=== PATIENT | female | born 1970 | race Two or more races ===

== ENCOUNTER 2018-05-01 11:48 | Inpatient (IN) | payer MEDICAID, OTHER ==
[~2018-05-01] VITALS: Ht 154.9 cm; Wt 94.8 kg
[2018-05-01] MEDS ORDERED: SODIUM CHLORIDE 0.9% 1,000 ML IV ONE ×2 (13:33)
[2018-05-01] MEDS ORDERED: ONDANSETRON HCL 4 MG/2 ML VIAL IV ONE (13:45)
[2018-05-01] MEDS ORDERED: KETOROLAC TROMETH 30 MG/ML 1ML VIAL IV ONE (13:45)
[2018-05-01] MEDS ORDERED: cefTRIAXone 1GM/10ml IVPUSH 10 ML IV ONE ×2 (13:45→16:00)
[2018-05-01 13:47] LABS: Basophils # (auto) 0 uL; Basophils % (auto) 0.2 % (0.0-2.0); Eosinophils # (auto) 0 uL; Eosinophils % (auto) 0.3 % (0.0-7.0); Hematocrit 37.2 % (36.0-46.0); Hemoglobin 12.4 g/dL (12.2-16.2); Lymphocytes # (auto) 0.8 uL; Lymphocytes % (auto) 6.5 % (10.0-50.0); Mean Corpuscular Hemoglobin 28.2 pg (28.0-32.0); Mean Corpuscular Hgb Conc. 33.4 g/dL (32.0-36.0); Mean Corpuscular Volume 84.3 fL (80.0-100.0); Monocytes # (auto) 0.8 uL; Monocytes % (auto) 6.5 % (0.0-12.0); Neutrophils # (auto) 10.5 uL; Neutrophils % (auto) 86.5 % (37.0-80.0); Nucleated Red Blood Cells % 0.1 %; Platelet Count (auto) 339 10^3/uL (140-450); Red Blood Cells 4.41 10^6/uL (4.0-5.20); Red Cell Distribution Width 12.7 % (11.8-14.3); White Blood Cell 12.1 10^3/uL (4.4-10.8)
[2018-05-01 13:49] LABS: Urine Bacteria NONE SEEN /hpf (None Seen); Urine Blood 3+ /uL (Negative); Urine Mucus MODERATE (None Seen); Urine Specific Gravity 1.029 (1.001-1.035); Urine WBC 27 /hpf (0 - 5)
[2018-05-01 14:09] LABS: Alanine Aminotransferase 21 U/L (13-56); Albumin 3.2 g/dL (3.4-5.0); Alkaline Phosphatase 62 U/L (45-117); Anion Gap 9 (5-15); Aspartate Aminotransferase 15 U/L (15-37); Bilirubin, Total 1.1 mg/dL (0.2-1.0); Blood Urea Nitrogen 15 mg/dL (7-18); Calcium 8.3 mg/dL (8.5-10.1); Carbon Dioxide 22 mmol/L (21-32); Chloride 106 mmol/L (98-107); GFR African American 77 mL/min; GFR Non-African American 63 mL/min; Glucose 92 mg/dL (74-106); Potassium 3.7 mmol/L (3.5-5.1); Sodium 137 mmol/L (136-145); Total Protein 7.3 g/dL (6.4-8.2)
[2018-05-01] MEDS ORDERED: AZITHROMYCIN 500MG/ 250ML 250 ML IV ONE (16:00)
[2018-05-01] MEDS ORDERED: LEVOFLOXACIN 750MG 150 ML IV ONE ×2 (16:15→20:00)
[2018-05-01] MEDS ORDERED: CLINDAMYCIN 900MG IV 50 ML IV ONE ×2 (16:15→20:00)
[2018-05-01 17:21] LABS: Lactic Acid w/Reflex 2.4 mmol/L (0.4-2.0)
[2018-05-01] MEDS ORDERED: LORazepam 0.5 MG TAB PO PRN (18:15)
[2018-05-01] MEDS ORDERED: NITROGLYCERIN 0.4 MG SL TAB SL PRN (18:15)
[2018-05-01] MEDS ORDERED: MORPHINE SULF INJ 2 MG/ML SYRINGE 1ML IV PRN (18:15)
[2018-05-01] MEDS: FAMOTIDINE (10MG/ML) 2ML VL IV SCH (18:36)
[2018-05-01] MEDS: MORPHINE SULF INJ 2 MG/ML SYRINGE 1ML IV PRN (19:55)
[2018-05-01 20:00] LABS: Prothrombin Time 10.7 sec (9.27-12.13)
[2018-05-01] MEDS: PROMETHAZINE HCL 25 MG/ML 1ML IV PRN (20:15)
[2018-05-01] MEDS: SODIUM CHLORIDE 0.9% 1,000 ML IV SCH (21:17)
[2018-05-02] MEDS: PROMETHAZINE HCL 25 MG/ML 1ML IV PRN (02:12)
[2018-05-02] MEDS: MORPHINE SULF INJ 2 MG/ML SYRINGE 1ML IV PRN ×3 (02:13→15:32)
[2018-05-02] MEDS: SODIUM CHLORIDE 0.9% 1,000 ML IV SCH ×2 (04:13→17:55)
[2018-05-02] MEDS: CLINDAMYCIN 600MG IV 50 ML IV SCH ×3 (06:20→22:02)
[2018-05-02] MEDS: FAMOTIDINE (10MG/ML) 2ML VL IV SCH ×2 (06:21→17:46)
[2018-05-02 07:06] LABS: Basophils # (auto) 0 uL; Basophils % (auto) 0.3 % (0.0-2.0); Eosinophils # (auto) 0.1 uL; Eosinophils % (auto) 0.7 % (0.0-7.0); Hemoglobin 10.8 g/dL (12.2-16.2); Lymphocytes # (auto) 1.3 uL; Lymphocytes % (auto) 14.1 % (10.0-50.0); Mean Corpuscular Hemoglobin 29.4 pg (28.0-32.0); Mean Corpuscular Hgb Conc. 34.7 g/dL (32.0-36.0); Mean Corpuscular Volume 84.6 fL (80.0-100.0); Monocytes # (auto) 0.7 uL; Monocytes % (auto) 7.5 % (0.0-12.0); Neutrophils # (auto) 7.4 uL; Neutrophils % (auto) 77.4 % (37.0-80.0); Platelet Count (auto) 328 10^3/uL (140-450); Red Blood Cells 3.67 10^6/uL (4.0-5.20); Red Cell Distribution Width 12.6 % (11.8-14.3); White Blood Cell 9.6 10^3/uL (4.4-10.8)
[2018-05-02 07:27] LABS: Albumin 2.4 g/dL (3.4-5.0); BUN/Creatinine Ratio 15.7; Bilirubin, Total 0.7 mg/dL (0.2-1.0); Calcium 7.3 mg/dL (8.5-10.1); Potassium 3.2 mmol/L (3.5-5.1)
[2018-05-02 09:00] VITALS: BP 104/61
[2018-05-02] MEDS: cefTRIAXone 1GM/10ml IVPUSH 10 ML IV SCH (09:46)
[2018-05-02] MEDS: LEVOFLOXACIN 500MG 100 ML IV SCH (09:47)
[2018-05-02] MEDS ORDERED: PANTOPRAZOLE 40 MG TAB PO SCH (10:00)
[2018-05-02 13:00] VITALS: BP 96/58
[2018-05-02] MEDS ORDERED: POTASSIUM CHLORIDE 8 MEQ TAB PO ONE (13:30)
[2018-05-02 17:00] VITALS: BP 107/58
[2018-05-02] MEDS: Ensure Enlive Strawberry 8oz Bottle PO SCH (18:30)
[2018-05-02 20:00] VITALS: BP 110/65
[2018-05-02] MEDS: ACETAMINOPHEN 500 MG TAB PO PRN (20:47)
[2018-05-02 22:00] VITALS: BP 110/65
[2018-05-03] MEDS: SODIUM CHLORIDE 0.9% 1,000 ML IV SCH ×3 (00:30→20:34)
[2018-05-03 05:00] VITALS: BP 110/62
[2018-05-03] MEDS: CLINDAMYCIN 600MG IV 50 ML IV SCH ×3 (06:20→21:33)
[2018-05-03] MEDS: FAMOTIDINE (10MG/ML) 2ML VL IV SCH ×2 (06:20→18:15)
[2018-05-03] MEDS: ACETAMINOPHEN 500 MG TAB PO PRN ×3 (06:21→21:34)
[2018-05-03 06:53] LABS: Basophils # (auto) 0 uL; Basophils % (auto) 0.4 % (0.0-2.0); Eosinophils # (auto) 0.1 uL; Eosinophils % (auto) 1.6 % (0.0-7.0); Hematocrit 30.2 % (36.0-46.0); Hemoglobin 10.6 g/dL (12.2-16.2); Lymphocytes # (auto) 1.6 uL; Lymphocytes % (auto) 22.3 % (10.0-50.0); Mean Corpuscular Hemoglobin 29.4 pg (28.0-32.0); Mean Corpuscular Hgb Conc. 34.9 g/dL (32.0-36.0); Mean Corpuscular Volume 84.1 fL (80.0-100.0); Monocytes # (auto) 0.5 uL; Monocytes % (auto) 7.5 % (0.0-12.0); Neutrophils % (auto) 68.2 % (37.0-80.0); Platelet Count (auto) 365 10^3/uL (140-450); Red Blood Cells 3.59 10^6/uL (4.0-5.20); White Blood Cell 7.2 10^3/uL (4.4-10.8)
[2018-05-03 07:06] LABS: BUN/Creatinine Ratio 11.1; Calcium 7.4 mg/dL (8.5-10.1); Potassium 3.2 mmol/L (3.5-5.1)
[2018-05-03] MEDS: Ensure Enlive Strawberry 8oz Bottle PO SCH ×3 (08:00→18:00)
[2018-05-03 09:00] VITALS: BP 100/66
[2018-05-03] MEDS: cefTRIAXone 1GM/10ml IVPUSH 10 ML IV SCH (09:45)
[2018-05-03] MEDS: LEVOFLOXACIN 500MG 100 ML IV SCH (09:45)
[2018-05-03] MEDS ORDERED: POTASSIUM CHL 20 Meq TABLET PO ONE (11:45)
[2018-05-03 13:00] VITALS: BP 103/69
[2018-05-03 16:49] VITALS: BP 106/73
[2018-05-03 20:00] VITALS: BP 115/75
[2018-05-03 22:00] VITALS: BP 115/75
[2018-05-04] MEDS: MORPHINE SULF INJ 2 MG/ML SYRINGE 1ML IV PRN ×2 (00:06→06:12)
[2018-05-04 05:00] VITALS: BP 108/72
[2018-05-04] MEDS: CLINDAMYCIN 600MG IV 50 ML IV SCH (05:58)
[2018-05-04] MEDS: SODIUM CHLORIDE 0.9% 1,000 ML IV SCH ×2 (06:12→14:13)
[2018-05-04] MEDS: FAMOTIDINE (10MG/ML) 2ML VL IV SCH ×2 (06:12→17:50)
[2018-05-04 06:26] LABS: Basophils # (auto) 0 uL; Basophils % (auto) 0.5 % (0.0-2.0); Eosinophils # (auto) 0.2 uL; Eosinophils % (auto) 2.9 % (0.0-7.0); Hematocrit 30.6 % (36.0-46.0); Hemoglobin 10.6 g/dL (12.2-16.2); Lymphocytes % (auto) 30.2 % (10.0-50.0); Mean Corpuscular Hemoglobin 29.1 pg (28.0-32.0); Mean Corpuscular Hgb Conc. 34.7 g/dL (32.0-36.0); Monocytes # (auto) 0.4 uL; Monocytes % (auto) 5.9 % (0.0-12.0); Neutrophils % (auto) 60.5 % (37.0-80.0); Nucleated Red Blood Cells % 0.2 %; Platelet Count (auto) 442 10^3/uL (140-450); Red Blood Cells 3.64 10^6/uL (4.0-5.20); Red Cell Distribution Width 12.9 % (11.8-14.3); White Blood Cell 6.6 10^3/uL (4.4-10.8)
[2018-05-04 06:43] LABS: BUN/Creatinine Ratio 11.9; Calcium 7.7 mg/dL (8.5-10.1); Potassium 3.5 mmol/L (3.5-5.1)
[2018-05-04] MEDS: Ensure Enlive Strawberry 8oz Bottle PO SCH ×3 (08:03→17:50)
[2018-05-04 09:00] VITALS: BP 111/65
[2018-05-04] MEDS: LEVOFLOXACIN 500MG 100 ML IV SCH (10:45)
[2018-05-04] MEDS: cefTRIAXone 1GM/10ml IVPUSH 10 ML IV SCH (10:46)
[2018-05-04] MEDS: ACETAMINOPHEN 500 MG TAB PO PRN ×2 (11:09→20:47)
[2018-05-04] MEDS ORDERED: POTASSIUM CHL 10 Meq TABLET PO ONE (11:30)
[2018-05-04 11:44] LABS: INR 0.94 (0.9-1.15); Prothrombin Time 10.1 sec (9.27-12.13)
[2018-05-04 13:00] VITALS: BP 124/70
[2018-05-04] MEDS: PROMETHAZINE HCL 25 MG/ML 1ML IV PRN (13:07)
[2018-05-04] MEDS: metroNIDAZOLE 500MG/100ML 100 ML IV SCH ×2 (14:12→22:21)
[2018-05-04 16:46] VITALS: BP 105/62
[2018-05-04 22:00] VITALS: BP 120/72
[2018-05-05] MEDS: MORPHINE SULF INJ 2 MG/ML SYRINGE 1ML IV PRN ×2 (02:17→06:46)
[2018-05-05] MEDS: SODIUM CHLORIDE 0.9% 1,000 ML IV SCH ×2 (02:18→09:37)
[2018-05-05 05:08] VITALS: BP 123/82
[2018-05-05] MEDS: FAMOTIDINE (10MG/ML) 2ML VL IV SCH ×2 (06:29→17:48)
[2018-05-05] MEDS: metroNIDAZOLE 500MG/100ML 100 ML IV SCH ×3 (06:29→21:19)
[2018-05-05 06:53] LABS: Basophils # (auto) 0 uL; Eosinophils # (auto) 0.2 uL; Hemoglobin 10.7 g/dL (12.2-16.2); Lymphocytes # (auto) 2.4 uL; Monocytes # (auto) 0.5 uL; Neutrophils % (auto) 55.3 % (37.0-80.0); Nucleated Red Blood Cells % 0.1 %
[2018-05-05 06:56] LABS: Basophils % (auto) 0.6 % (0.0-2.0); Eosinophils % (auto) 2.2 % (0.0-7.0); Hematocrit 30.6 % (36.0-46.0); Lymphocytes % (auto) 34.3 % (10.0-50.0); Mean Corpuscular Hemoglobin 29.3 pg (28.0-32.0); Mean Corpuscular Hgb Conc. 34.9 g/dL (32.0-36.0); Mean Corpuscular Volume 84.1 fL (80.0-100.0); Monocytes % (auto) 7.6 % (0.0-12.0); Neutrophils # (auto) 3.8 uL; Platelet Count (auto) 511 10^3/uL (140-450); Red Blood Cells 3.65 10^6/uL (4.0-5.20); Red Cell Distribution Width 12.7 % (11.8-14.3); White Blood Cell 6.9 10^3/uL (4.4-10.8)
[2018-05-05 07:14] LABS: BUN/Creatinine Ratio 9.8; Calcium 7.8 mg/dL (8.5-10.1); Potassium 3.6 mmol/L (3.5-5.1)
[2018-05-05] MEDS: Ensure Enlive Strawberry 8oz Bottle PO SCH ×3 (07:22→17:48)
[2018-05-05 09:00] VITALS: BP 124/74
[2018-05-05] MEDS: LEVOFLOXACIN 500MG 100 ML IV SCH (09:36)
[2018-05-05] MEDS: PROMETHAZINE HCL 25 MG/ML 1ML IV PRN (09:51)
[2018-05-05] MEDS ORDERED: ONDANSETRON HCL 4 MG/2 ML VIAL ONE (11:42)
[2018-05-05] MEDS ORDERED: fentaNYL CITRATE 100 MCG/2 ML VL ONE (11:42)
[2018-05-05] MEDS ORDERED: ROCURONIUM 10MG/ML 10ML VIAL IV ONE (11:42)
[2018-05-05] MEDS ORDERED: HYDROmorphone HCL 2 MG/ML VL ONE (11:42)
[2018-05-05] MEDS ORDERED: PROPOFOL 10 MG/ML 20 ML IV ONE (11:42)
[2018-05-05] MEDS ORDERED: MIDAZOLAM HCL 1MG/1ML-2 ML VIAL ONE (11:42)
[2018-05-05] MEDS ORDERED: METHYLENE BLUE 0.5% 5MG/ML 10ml AMP IV ONE (11:55)
[2018-05-05] MEDS ORDERED: HEPARIN 1,000 UNITS/ml 1ML VIAL ONE (11:56)
[2018-05-05] MEDS ORDERED: METOCLOPRAMIDE HCL 5MG/ml INJ 2ml VIAL IV ONE (12:15)
[2018-05-05] MEDS ORDERED: KETOROLAC TROMETH 30 MG/ML 1ML VIAL IV ONE (12:15)
[2018-05-05] MEDS ORDERED: ceFAZolin 1GM/50ML 50 ML IV ONE (12:17)
[2018-05-05] MEDS ORDERED: SUCCINYLCHOLINE CHLORIDE 20 MG/ML 10ML VIAL IV ONE (12:25)
[2018-05-05 13:00] VITALS: BP 137/78
[2018-05-05] MEDS ORDERED: GLYCOPYRROLATE 0.2 MG/ML 1ML VIAL ONE (13:32)
[2018-05-05] MEDS ORDERED: KETOROLAC TROMETH 60MG/2ML VIAL IM ONE (13:32)
[2018-05-05] MEDS ORDERED: NEOSTIGMINE 1 MG/ML INJ (10mg/10ML VIAL) ONE (13:32)
[2018-05-05] MEDS ORDERED: MORPHINE SULFATE 4 MG/ML SYR/VIAL IV PRN ×2 (14:30)
[2018-05-05] MEDS: LACTATED RINGER'S 1,000 ML IV SCH ×2 (14:47→21:19)
[2018-05-05] MEDS ORDERED: ACETAMINOPHEN IV 100 ML IV ONE ×2 (14:50→15:00)
[2018-05-05] MEDS ORDERED: ACETAMINOPHEN IV 1000 MG/100ML (10MG/ML) IV ONE (14:55)
[2018-05-05] MEDS: HYDROmorphone HCL 2 MG/ML VL IV PRN ×4 (14:58→16:58)
[2018-05-05] MEDS ORDERED: ONDANSETRON HCL 4 MG/2 ML VIAL IV PRN (15:00)
[2018-05-05] MEDS ORDERED: MEPERIDINE HCL (50 MG/ML) 1 ML VIAL ONE (15:05)
[2018-05-05] MEDS ORDERED: MEPERIDINE HCL (25 MG/ML) 1ML VIAL IV ONE (15:06)
[2018-05-05 16:36] VITALS: BP 129/81
[2018-05-05] MEDS: MORPHINE SULFATE 4 MG/ML SYR/VIAL IV PRN ×2 (17:48→22:27)
[2018-05-05 19:46] LABS: Basophils # (auto) 0 uL; Basophils % (auto) 0.2 % (0.0-2.0); Eosinophils # (auto) 0 uL; Monocytes # (auto) 0.6 uL
[2018-05-05 19:49] LABS: Eosinophils % (auto) 0.2 % (0.0-7.0); Hematocrit 31.2 % (36.0-46.0); Lymphocytes # (auto) 1.2 uL; Lymphocytes % (auto) 11.7 % (10.0-50.0); Mean Corpuscular Hgb Conc. 35.4 g/dL (32.0-36.0); Mean Corpuscular Volume 84.7 fL (80.0-100.0); Monocytes % (auto) 6.1 % (0.0-12.0); Neutrophils # (auto) 8.1 uL; Neutrophils % (auto) 81.8 % (37.0-80.0); Nucleated Red Blood Cells % 0.1 %; Platelet Count (auto) 510 10^3/uL (140-450); Red Blood Cells 3.68 10^6/uL (4.0-5.20); White Blood Cell 9.9 10^3/uL (4.4-10.8)
[2018-05-05 21:32] VITALS: BP 131/73
[2018-05-05] MEDS: KETOROLAC TROMETH 30 MG/ML 1ML VIAL IV PRN (23:35)
[2018-05-05] MEDS: TEMAZEPAM 15 MG CAP PO PRN (23:35)
[2018-05-06] MEDS: MORPHINE SULFATE 4 MG/ML SYR/VIAL IV PRN ×4 (02:48→21:27)
[2018-05-06] MEDS: LACTATED RINGER'S 1,000 ML IV SCH ×3 (04:26→17:08)
[2018-05-06 05:10] VITALS: BP 119/74
[2018-05-06] MEDS: FAMOTIDINE (10MG/ML) 2ML VL IV SCH ×2 (06:01→17:10)
[2018-05-06] MEDS: metroNIDAZOLE 500MG/100ML 100 ML IV SCH ×3 (06:01→21:28)
[2018-05-06] MEDS: KETOROLAC TROMETH 30 MG/ML 1ML VIAL IV PRN ×2 (06:01→13:52)
[2018-05-06 08:00] VITALS: BP 132/87
[2018-05-06] MEDS: Ensure Enlive Strawberry 8oz Bottle PO SCH ×3 (08:17→17:09)
[2018-05-06 08:20] LABS: Basophils # (auto) 0 uL; Basophils % (auto) 0.3 % (0.0-2.0); Eosinophils # (auto) 0.1 uL; Lymphocytes # (auto) 1.6 uL; Mean Corpuscular Volume 83.7 fL (80.0-100.0); Neutrophils # (auto) 6.5 uL; Platelet Count (auto) 453 10^3/uL (140-450); Red Cell Distribution Width 12.6 % (11.8-14.3)
[2018-05-06 08:22] LABS: Eosinophils % (auto) 0.9 % (0.0-7.0); Hematocrit 27.7 % (36.0-46.0); Lymphocytes % (auto) 18.4 % (10.0-50.0); Mean Corpuscular Hemoglobin 30.2 pg (28.0-32.0); Mean Corpuscular Hgb Conc. 36.1 g/dL (32.0-36.0); Monocytes # (auto) 0.7 uL; Monocytes % (auto) 7.5 % (0.0-12.0); Neutrophils % (auto) 72.9 % (37.0-80.0); Red Blood Cells 3.31 10^6/uL (4.0-5.20); White Blood Cell 8.9 10^3/uL (4.4-10.8)
[2018-05-06 08:44] LABS: Albumin 2.3 g/dL (3.4-5.0); BUN/Creatinine Ratio 11.4; Bilirubin, Total 0.3 mg/dL (0.2-1.0); Calcium 7.3 mg/dL (8.5-10.1); Potassium 3.2 mmol/L (3.5-5.1); Total Protein 5.7 g/dL (6.4-8.2)
[2018-05-06] MEDS ORDERED: POTASSIUM CHL 20 Meq TABLET PO ONE (09:45)
[2018-05-06] MEDS: LEVOFLOXACIN 500MG 100 ML IV SCH (10:16)
[2018-05-06] MEDS: ACETAMINOPHEN 500 MG TAB PO PRN (11:40)
[2018-05-06 12:00] VITALS: BP 125/72
[2018-05-06 16:30] VITALS: BP 132/84
[2018-05-06 21:23] VITALS: BP 127/81
[2018-05-06] MEDS: TEMAZEPAM 15 MG CAP PO PRN (21:28)
[2018-05-07] MEDS: LACTATED RINGER'S 1,000 ML IV SCH ×4 (00:26→23:19)
[2018-05-07] MEDS: KETOROLAC TROMETH 30 MG/ML 1ML VIAL IV PRN ×3 (00:38→13:29)
[2018-05-07 05:17] VITALS: BP 121/73
[2018-05-07] MEDS: metroNIDAZOLE 500MG/100ML 100 ML IV SCH ×3 (06:05→21:56)
[2018-05-07] MEDS: FAMOTIDINE (10MG/ML) 2ML VL IV SCH ×2 (06:05→18:05)
[2018-05-07 09:00] VITALS: BP 145/77
[2018-05-07] MEDS ORDERED: DOCUSATE SOD 100 MG CAP PO PRN (09:30)
[2018-05-07] MEDS ORDERED: BISACODYL 10 MG RECT SUPP PR PRN (09:30)
[2018-05-07] MEDS: Ensure Enlive Strawberry 8oz Bottle PO SCH ×3 (09:45→18:04)
[2018-05-07] MEDS: LEVOFLOXACIN 500MG 100 ML IV SCH (09:45)
[2018-05-07] MEDS: DOCUSATE CALCIUM 240 MG CAP PO SCH (09:45)
[2018-05-07] MEDS: SIMETHICONE 80 MG CHEWABLE TABLET PO SCH ×3 (12:05→21:57)
[2018-05-07 13:00] VITALS: BP 126/73
[2018-05-07 16:53] VITALS: BP 124/72
[2018-05-07] MEDS: HYDROcodone-ACET 10/325MG TAB PO PRN (18:50)
[2018-05-07] MEDS: TEMAZEPAM 15 MG CAP PO PRN (21:57)
[2018-05-07 22:22] VITALS: BP 138/76
[2018-05-08 04:34] LABS: Hematocrit 27.9 % (36.0-46.0)
[2018-05-08 04:38] LABS: Hemoglobin 10.1 g/dL (12.2-16.2)
[2018-05-08 04:54] LABS: Potassium 3.3 mmol/L (3.5-5.1)
[2018-05-08 04:59] LABS: BUN/Creatinine Ratio 20.3; Calcium 7.5 mg/dL (8.5-10.1)
[2018-05-08 05:17] VITALS: BP_SYST 131; BP_SYST 144; BP_DIAS 75; BP_DIAS 81
[2018-05-08] MEDS: metroNIDAZOLE 500MG/100ML 100 ML IV SCH (06:22)
[2018-05-08] MEDS: FAMOTIDINE (10MG/ML) 2ML VL IV SCH ×2 (06:23→17:22)
[2018-05-08] MEDS: SIMETHICONE 80 MG CHEWABLE TABLET PO SCH ×4 (06:23→21:20)
[2018-05-08] MEDS: KETOROLAC TROMETH 30 MG/ML 1ML VIAL IV PRN (06:23)
[2018-05-08 08:00] VITALS: BP 136/86
[2018-05-08] MEDS: Ensure Enlive Strawberry 8oz Bottle PO SCH ×3 (09:38→17:22)
[2018-05-08] MEDS: LACTATED RINGER'S 1,000 ML IV SCH ×3 (09:38→22:48)
[2018-05-08] MEDS: LEVOFLOXACIN 500MG 100 ML IV SCH (09:39)
[2018-05-08] MEDS: DOCUSATE CALCIUM 240 MG CAP PO SCH (09:39)
[2018-05-08] MEDS ORDERED: POTASSIUM CHL 20 Meq TABLET PO ONE (10:15)
[2018-05-08 12:20] VITALS: BP 135/80
[2018-05-08] MEDS: metroNIDAZOLE 500 MG TAB PO SCH ×2 (13:36→21:19)
[2018-05-08] MEDS: HYDROcodone-ACET 10/325MG TAB PO PRN (14:09)
[2018-05-08 16:45] VITALS: BP 134/82
[2018-05-08] MEDS: TEMAZEPAM 15 MG CAP PO PRN (21:20)
[2018-05-08 22:00] VITALS: BP 124/71
[2018-05-09] MEDS: HYDROcodone-ACET 10/325MG TAB PO PRN ×2 (00:59→12:34)
[2018-05-09 05:00] VITALS: BP 118/69
[2018-05-09 05:57] LABS: Basophils # (auto) 0 uL; Mean Corpuscular Hgb Conc. 35.8 g/dL (32.0-36.0); Nucleated Red Blood Cells % 0.1 %
[2018-05-09 06:01] LABS: BUN/Creatinine Ratio 12.8; Calcium 7.6 mg/dL (8.5-10.1); Magnesium 2.2 mg/dL (1.6-2.6); Potassium 3.8 mmol/L (3.5-5.1)
[2018-05-09 06:06] LABS: Basophils % (auto) 0.4 % (0.0-2.0); Eosinophils # (auto) 0.2 uL; Eosinophils % (auto) 2.9 % (0.0-7.0); Lymphocytes % (auto) 28.3 % (10.0-50.0); Mean Corpuscular Hemoglobin 29.5 pg (28.0-32.0); Mean Corpuscular Volume 82.4 fL (80.0-100.0); Monocytes # (auto) 0.5 uL; Neutrophils # (auto) 4.4 uL; Neutrophils % (auto) 61.4 % (37.0-80.0); Platelet Count (auto) 510 10^3/uL (140-450); Red Cell Distribution Width 12.7 % (11.8-14.3); White Blood Cell 7.2 10^3/uL (4.4-10.8)
[2018-05-09] MEDS: FAMOTIDINE (10MG/ML) 2ML VL IV SCH (06:12)
[2018-05-09] MEDS: metroNIDAZOLE 500 MG TAB PO SCH ×2 (06:12→14:00)
[2018-05-09] MEDS: SIMETHICONE 80 MG CHEWABLE TABLET PO SCH ×2 (06:13→12:33)
[2018-05-09] MEDS: Ensure Enlive Strawberry 8oz Bottle PO SCH ×2 (08:29→12:35)
[2018-05-09 09:00] VITALS: BP 153/81
[2018-05-09] MEDS ORDERED: PROM25TA5 PO (09:45)
[2018-05-09] MEDS ORDERED: MET500T PO (09:45)
[2018-05-09] MEDS ORDERED: LEVO500T21 PO (09:45)
[2018-05-09] MEDS ORDERED: LEVOFLOXACIN 500 MG TAB PO SCH (10:00)
[2018-05-09] MEDS: DOCUSATE CALCIUM 240 MG CAP PO SCH (10:03)
[2018-05-09] MEDS ORDERED: PROMETHAZINE HCL 6.25 MG/5 ML ORAL SYRUP PO ONE (10:15)
[2018-05-09 13:00] VITALS: BP 147/80
[2018-05-09 13:21] VITALS: BP 153/81
== END 2018-05-09 14:45 | disposition home or self-care (01) | DRG 513 ==
LOC: ER 11:48 → EDBD 11:48 → TELE 11:49 → TELE-WESTW 05-02 09:05 → WEST WING 05-02 16:57
PROVIDERS: ADMIT Internal Medicine; ATTEND Internal Medicine
PROC: 0UT60ZZ Resection of Left Fallopian Tube, Open Approach (ICD-10-PCS; 2018-05-05)
PROC: 0DNW0ZZ Release Peritoneum, Open Approach (ICD-10-PCS; 2018-05-05)
PROC: 0UT90ZL Resection of Uterus, Supracervical, Open Approach (ICD-10-PCS; principal; 2018-05-05 12:25)
PROC: 0UT10ZZ Resection of Left Ovary, Open Approach (ICD-10-PCS; 2018-05-05 12:25)
DX: N83.202 Unspecified ovarian cyst, left side (principal); K65.1 Peritoneal abscess; A41.9 Sepsis, unspecified organism; J18.9 Pneumonia, unspecified organism; E44.0 Moderate protein-calorie malnutrition; R16.0 Hepatomegaly, not elsewhere classified; N12 Tubulo-interstitial nephritis, not specified as acute or chronic; E66.9 Obesity, unspecified; Z68.39 Body mass index [BMI] 39.0-39.9, adult; N39.0 Urinary tract infection, site not specified; J98.11 Atelectasis; K80.20 Calculus of gallbladder without cholecystitis without obstruction; N85.2 Hypertrophy of uterus; E87.6 Hypokalemia; N20.0 Calculus of kidney; N73.6 Female pelvic peritoneal adhesions (postinfective); Z82.3 Family history of stroke; Z82.49 Family history of ischemic heart disease and other diseases of the circulatory system; Z87.828 Personal history of other (healed) physical injury and trauma; Z83.3 Family history of diabetes mellitus; Z98.82 Breast implant status; Z98.891 History of uterine scar from previous surgery
CPT/HCPCS: 36415; 71045; 74176; 76830; 76856; 80048; 80053; 81001; 81025; 83605; 83735; 84484; 85014; 85018; 85025; 85610; 85652; 86141; 86850; 86900; 86901; 86920; 87040; 87086; 96365; 96366; 96375; 97110; 97116; 97163; 97530; J0131; J0330; J0690; J0696; J1885; J1956; J2250; J2405; J2704; J3490

== ENCOUNTER 2018-10-25 22:11 | Emergency (ER) | payer MEDICAID ==
[~2018-10-25] VITALS: Ht 157.5 cm; Wt 81.6 kg
[~2018-10-25 22:11] MED LIST: LEVO500T21 PO; MET500T PO; PROM25TA5 PO
[2018-10-25 22:49] VITALS: BP 113/73
[2018-10-25 23:03] LABS: Basophils # (auto) 0.1 uL; Eosinophils # (auto) 0.2 uL; Eosinophils % (auto) 2.3 % (0.0-7.0); Hematocrit 38.9 % (36.0-46.0); Hemoglobin 13.4 g/dL (12.2-16.2); Lymphocytes # (auto) 3.2 uL; Lymphocytes % (auto) 43.2 % (10.0-50.0); Mean Corpuscular Hemoglobin 28.8 pg (28.0-32.0); Mean Corpuscular Hgb Conc. 34.5 g/dL (32.0-36.0); Mean Corpuscular Volume 83.6 fL (80.0-100.0); Monocytes # (auto) 0.6 uL; Monocytes % (auto) 7.8 % (0.0-12.0); Neutrophils # (auto) 3.4 uL; Neutrophils % (auto) 45.7 % (37.0-80.0); Platelet Count (auto) 342 10^3/uL (140-450); Red Blood Cells 4.65 10^6/uL (4.0-5.20); Red Cell Distribution Width 13.8 % (11.8-14.3); White Blood Cell 7.3 10^3/uL (4.4-10.8)
[2018-10-25 23:05] LABS: Urine Bacteria NONE SEEN /hpf (None Seen); Urine Blood Negative /uL (Negative); Urine Mucus FEW (None Seen); Urine Specific Gravity 1.028 (1.001-1.035); Urine WBC 1 /hpf (0 - 5)
[2018-10-25 23:17] LABS: INR 0.95 (0.9-1.15); Partial Thromboplastin Time 25.6 sec (23.78-33.04); Prothrombin Time 10.2 sec (9.27-12.13)
[2018-10-25 23:19] LABS: Alanine Aminotransferase 51 U/L (13-56); Albumin 3.8 g/dL (3.4-5.0); Amylase 36 U/L (25-115); Anion Gap 6 (5-15); Aspartate Aminotransferase 23 U/L (15-37); BUN/Creatinine Ratio 19.6; Blood Urea Nitrogen 19 mg/dL (7-18); Calcium 8.2 mg/dL (8.5-10.1); Carbon Dioxide 25 mmol/L (21-32); Chloride 111 mmol/L (98-107); GFR African American > 60 mL/min; GFR Non-African American > 60 mL/min; Glucose 92 mg/dL (74-106); Lipase 130 U/L (73-393); Magnesium 2.2 mg/dL (1.6-2.6); Potassium 3.6 mmol/L (3.5-5.1); Sodium 142 mmol/L (136-145)
[2018-10-25 23:22] LABS: Alkaline Phosphatase 74 U/L (45-117); Bilirubin, Total 0.3 mg/dL (0.2-1.0); Total Protein 7.3 g/dL (6.4-8.2)
== END 2018-10-26 05:13 | disposition home or self-care (01) ==
LOC: ER 22:15
DX: K80.80 Other cholelithiasis without obstruction (principal); K52.9 Noninfective gastroenteritis and colitis, unspecified; R20.0 Anesthesia of skin; R20.2 Paresthesia of skin; I10 Essential (primary) hypertension; Z79.899 Other long term (current) drug therapy
CPT/HCPCS: 36415; 74176; 80053; 81001; 81025; 82150; 83690; 83735; 85025; 85610; 85730

== ENCOUNTER 2019-09-02 17:05 | Emergency (ER) | payer MEDICAID ==
[~2019-09-02] VITALS: Ht 154.9 cm; Wt 86.2 kg
[2019-09-02 18:19] LABS: Basophils # (auto) 0 uL; Basophils % (auto) 0.2 % (0.0-2.0); Eosinophils # (auto) 0 uL; Eosinophils % (auto) 0.2 % (0.0-7.0); Hematocrit 40.7 % (36.0-46.0); Hemoglobin 14.2 g/dL (12.2-16.2); Lymphocytes # (auto) 1.4 uL; Lymphocytes % (auto) 11.7 % (10.0-50.0); Mean Corpuscular Hgb Conc. 34.8 g/dL (32.0-36.0); Mean Corpuscular Volume 86.3 fL (80.0-100.0); Monocytes # (auto) 0.7 uL; Monocytes % (auto) 5.8 % (0.0-12.0); Neutrophils # (auto) 9.8 uL; Neutrophils % (auto) 82.1 % (37.0-80.0); Platelet Count (auto) 284 10^3/uL (140-450); Red Blood Cells 4.72 10^6/uL (4.0-5.20); Red Cell Distribution Width 12.8 % (11.8-14.3); White Blood Cell 11.9 10^3/uL (4.4-10.8)
[2019-09-02 18:19] LABS: Urine Bacteria NONE SEEN /hpf (None Seen); Urine Blood 1+ /uL (Negative); Urine Mucus FEW (None Seen); Urine Specific Gravity 1.037 (1.001-1.035); Urine WBC 10 /hpf (0 - 5)
[2019-09-02 18:41] LABS: Albumin 4.1 g/dL (3.4-5.0); BUN/Creatinine Ratio 17.2; Calcium 8.7 mg/dL (8.5-10.1); Potassium 4.1 mmol/L (3.5-5.1)
[2019-09-02 18:43] LABS: Bilirubin, Total 1.1 mg/dL (0.2-1.0); Total Protein 7.9 g/dL (6.4-8.2)
[2019-09-02] MEDS ORDERED: cefTRIAXone SOD 1,000 MG VL IM ONE (20:00)
[2019-09-02] MEDS ORDERED: KETOROLAC TROMETH 60MG/2ML VIAL IM ONE (20:00)
[2019-09-02] MEDS ORDERED: LIDOCAINE 1% HCL (LOCAL ANESTH.) INJ 20ML MDV ONE (20:29)
[2019-09-02 20:43] VITALS: BP 137/73
[2019-09-02] MEDS ORDERED: LIDOCAINE 1% HCL (LOCAL ANESTH.) INJ 20ML MDV ID ONE (20:45)
== END 2019-09-02 20:56 | disposition home or self-care (01) ==
LOC: ER 17:05
DX: K52.9 Noninfective gastroenteritis and colitis, unspecified (principal); N39.0 Urinary tract infection, site not specified; I10 Essential (primary) hypertension
CPT/HCPCS: 36415; 80053; 81001; 85025; 96372; 99283; J0696; J1885; J2001